=== PATIENT | female | born 1955 | race Caucasian/White ===

== ENCOUNTER 2019-07-07 18:01 | Emergency (ER) | payer OTHER ==
[~2019-07-07] VITALS: Ht 162.6 cm; Wt 52.2 kg
[~2019-07-07 18:01] MED LIST: ENALAPRIL MALEA10 MG PO; METFORMIN HCL500 M3 PO; PRAVASTATIN SOD40 MG PO; PROZAC40 MG PO; TIROSINT75 MCG PO; TRANXENE T-TAB7.5 MG PO
== END 2019-07-07 20:27 | disposition home or self-care (01) ==
LOC: ER 18:01
DX: R05 Cough (principal)